=== PATIENT | male | born 1945 | race Caucasian/White ===

== ENCOUNTER 2018-08-09 11:11 | Emergency (ER) | payer MEDICARE ==
[~2018-08-09] VITALS: Ht 160 cm; Wt 70.3 kg
[~2018-08-09 11:11] MED LIST: ADVAIR HFA115 MCG/21 INH; ASPIR 8181 MG PO; ASPIRIN325 PO; DUONEB 2.5-0.5 M3 ML INH; LEVAQUIN 500 M500 M2 PO; LOPRESSOR25 PO; MEDROLDOSEPACK PO; MIRALAX17 GM PO; NAPROSYN500 MG PO; NICOTINE TRANSD21 M1 TRANSDERM; NORCO 5-325 TA1 EACH PO; OXYCODONE HCL 55 MG PO; PREDNISONE 10 M10 MG PO; PROTONIX40 M1 PO; ROBAXIN 750 MG750 M1 PO; ROXICODONE5 MG PO; TOPROL XL25 MG PO; TRAMADOL 50 MG50 MG PO; ZANTAC 150MG T150 MG PO; [UNRECOGNIZED DRUG - REMARK]
[2018-08-09] MEDS ORDERED: TOPROL XL25 MG PO (11:25)
[2018-08-09 11:30] VITALS: BP 135/93
== END 2018-08-09 11:30 | disposition home or self-care (01) ==
LOC: M.ERS 11:11
DX: Z76.0 Encounter for issue of repeat prescription (principal); R03.0 Elevated blood-pressure reading, without diagnosis of hypertension; F17.210 Nicotine dependence, cigarettes, uncomplicated; Z88.5 Allergy status to narcotic agent

== ENCOUNTER 2018-10-24 11:21 | Emergency (ER) | payer MEDICARE ==
[~2018-10-24] VITALS: Ht 160 cm; Wt 68.0 kg
[2018-10-24] MEDS ORDERED: TOPROL XL25 MG PO (11:38)
[2018-10-24 11:45] VITALS: BP 112/66
== END 2018-10-24 11:46 | disposition home or self-care (01) ==
LOC: M.ERS 11:21
DX: I10 Essential (primary) hypertension (principal); Z76.0 Encounter for issue of repeat prescription; F17.210 Nicotine dependence, cigarettes, uncomplicated; Z88.5 Allergy status to narcotic agent

== ENCOUNTER 2019-04-13 09:08 | Inpatient (IN) | payer MEDICARE ==
[~2019-04-13] VITALS: Ht 162.6 cm; Wt 68.0 kg
[2019-04-13 09:13] VITALS: BP 181/100
[2019-04-13] MEDS ORDERED: LISINOPRIL20 MG PO (09:16)
[2019-04-13 09:44] LABS: URINE BLOOD 2+ (Negative); URINE CLARITY CLEAR; URINE COLOR DARK YELLOW; URINE GLUCOSE-RANDOM NEGATIVE (Negative); URINE KETONES TRACE (Negative); URINE LEUKOCYTES-REFLEX NEGATIVE (Negative); URINE NITRITE-REFLEX NEGATIVE (Negative); URINE PROTEIN TRACE (Negative)
[2019-04-13 09:46] LABS: ABSOLUTE BASOPHILS 0.1 thou/uL (0.0-0.2); ABSOLUTE LYMPHOCYTES 1.9 thou/uL (0.8-5.3); ABSOLUTE MONOCYTES 1.8 thou/uL (0.0-1.2); ABSOLUTE NEUTROPHILS 15.9 thou/uL (1.6-8.1); BASOPHILS 0.3 %; EOSINOPHILS 0.1 %; HEMATOCRIT 59.5 % (42.0-52.0); HEMOGLOBIN 20.5 gm/dL (14.0-18.0); LYMPHOCYTES 9.8 %; MCH 32.9 pg (26.0-34.0); MCHC 34.4 g/dL (28.0-37.0); MCV 95.6 fL (80.0-100.0); MONOCYTES 9.2 %; MPV 8.2 fl. (7.2-11.1); NUCLEATED RBCS 0 /100WBC; POLYS 80.6 %; RBC 6.22 mil/uL (4.50-6.00); RDW-CV 15.4 % (10.5-14.5); WBC 19.7 thou/uL (4.0-11.0)
[2019-04-13 09:47] LABS: ICTOTEST (BILI CONFIRMATORY) Positive (Negative); URINE BILIRUBIN 3+ (Negative)
[2019-04-13 09:50] LABS: BACTERIA-REFLEX None Seen /HPF (None Seen); MUCUS None Seen strn/LPF (None Seen); SQUAMOUS NONE SEEN /LPF (0-3); URINE RBC 0-2 Rare /HPF (0-2); URINE WBC-REFLEX None Seen /HPF (0-5)
[2019-04-13 09:51] LABS: CRYSTALS None Seen /LPF (None Seen); HYALINE CASTS 0-3 Few /LPF (None Seen)
[2019-04-13 10:33] LABS: ANISOCYTOSIS 1+; PLATELET ESTIMATE INCREASED
[2019-04-13 10:39] LABS: PLATELET COUNT* 305 thou/uL (150-400)
[2019-04-13 10:56] LABS: ALBUMIN 3.1 g/dL (3.4-5.0); ALKALINE PHOSPHATASE 234 U/L (46-116); BUN 16 mg/dL (7-18); CALCIUM 8.6 mg/dL (8.5-10.1); CO2 23 mmol/L (21-32); CREATININE 1.1 mg/dL (0.6-1.3); GLUCOSE 149 mg/dL (70-99); POTASSIUM 3.4 mmol/L (3.5-5.1); SGOT 187 U/L (15-37); SGPT 280 U/L (30-65); TOTAL BILIRUBIN 9.3 mg/dL (<0.1-1.0); TOTAL PROTEIN 7.1 g/dL (6.4-8.2); TROPONIN-I LEVEL <0.06 ng/mL (<0.06)
[2019-04-13 11:09] LABS: CHLORIDE 103 mmol/L (98-107)
[2019-04-13 11:47] LABS: ANION GAP 15 mmol/L (7-16); SODIUM 141 mmol/L (136-145)
[2019-04-13 12:09] LABS: APTT 29.4 Seconds (25.0-31.3); PROTIME 10.3 Seconds (9.20-11.50)
[2019-04-13 13:02] LABS: LIPASE > 30000 U/L (73-393)
[2019-04-13 17:14] VITALS: BP 171/90
[2019-04-13 17:45] VITALS: BP 160/100
[2019-04-13 19:20] VITALS: BP 158/62
[2019-04-13 22:20] VITALS: BP 137/96
[2019-04-14] VITALS (10 sets, daily range): BP systolic 126–156; BP diastolic 65–102
[2019-04-14 04:20] LABS: HEMATOCRIT 55.4 % (42.0-52.0); MCH 32.5 pg (26.0-34.0); MCHC 33.4 g/dL (28.0-37.0); MCV 97.4 fL (80.0-100.0); MPV 8.1 fl. (7.2-11.1); NUCLEATED RBCS 0 /100WBC; PLATELET COUNT* 256 thou/uL (150-400); RBC 5.69 mil/uL (4.50-6.00); RDW-CV 14.6 % (10.5-14.5); WBC 18.1 thou/uL (4.0-11.0)
[2019-04-14 04:28] LABS: CALCIUM 8.5 mg/dL (8.5-10.1); POTASSIUM 3.6 mmol/L (3.5-5.1); TOTAL BILIRUBIN 4.7 mg/dL (<0.1-1.0)
[2019-04-14 04:29] LABS: HEMOGLOBIN 18.5 gm/dL (14.0-18.0)
[2019-04-14 05:24] LABS: ABSOLUTE LYMPHOCYTES 0.9 thou/uL (0.8-5.3); ABSOLUTE MONOCYTES 1.4 thou/uL (0.0-1.2); ABSOLUTE NEUTROPHILS 15.7 thou/uL (1.6-8.1); ANISOCYTOSIS 1+; PLATELET ESTIMATE ADEQUATE; POIKILOCYTOSIS 1+
--- NOTE | 2019-04-14 13:54 | EKG ---
[place] [address] ELECTROCARDIOGRAM REPORT Name: JUAN GUARDADO JR Room: [address] ADM IN .R.#: [id number] Admission: 04/13/19 Attend Phys: Nirmal Wilson MD Discharge: Date of : 43 Report #: [id number] THIS REPORT FOR: //name// [facility] ED Test Date: 2019-04-13 Test Time: 09:28:32 Pat Name: JUAN GUARDADO Department: Room: [facility] Gender: M Director Of Investigations: : 1945 Requested By: Fabio Orellana Order Number: [id number] MD: Lamont Case Measurements Intervals [place] Rate: 104 P: 79 IA: 164 QRS: -18 QRSD: 86 T: 61 QT: 343 QTc: 452 Interpretive Statements Sinus tachycardia Borderline left axis deviation Low voltage, extremity leads Consider anterior infarct Compared to ECG 09/27/2015 10:47:42 Low QRS voltage now present Myocardial infarct finding now present Sinus rate has increased ST (T wave) deviation no longer present Electronically Signed On 04-14-2019 13:53:53 CDT by Lamont Case [email or web address] <ELECTRONICALLY SIGNED> By: Lamont Case MD, FAC 04/14/19 1353 0928 0928 Lamont Case MD, FAC /EPI
[2019-04-15] VITALS: BP 106/66
[2019-04-15 04:00] VITALS: BP 117/50
[2019-04-15 04:11] LABS: ABSOLUTE EOSINOPHILS 0.1 thou/uL (0.0-0.7); ABSOLUTE LYMPHOCYTES 1.5 thou/uL (0.8-5.3); ABSOLUTE MONOCYTES 1.4 thou/uL (0.0-1.2); ABSOLUTE NEUTROPHILS 14.4 thou/uL (1.6-8.1); BASOPHILS 0.2 %; EOSINOPHILS 0.5 %; HEMATOCRIT 45.9 % (42.0-52.0); LYMPHOCYTES 8.5 %; MCH 32.5 pg (26.0-34.0); MCV 98.3 fL (80.0-100.0); MONOCYTES 7.9 %; NUCLEATED RBCS 0 /100WBC; PLATELET COUNT* 189 thou/uL (150-400); POLYS 82.9 %; RBC 4.67 mil/uL (4.50-6.00); RDW-CV 14.8 % (10.5-14.5); WBC 17.3 thou/uL (4.0-11.0)
[2019-04-15 04:14] LABS: HEMOGLOBIN 15.2 gm/dL (14.0-18.0)
[2019-04-15 04:25] LABS: ALBUMIN 2.2 g/dL (3.4-5.0); CALCIUM 7.5 mg/dL (8.5-10.1); POTASSIUM 3.5 mmol/L (3.5-5.1); TOTAL BILIRUBIN 2.7 mg/dL (<0.1-1.0); TOTAL PROTEIN 5.4 g/dL (6.4-8.2)
[2019-04-15 09:54] VITALS: BP 138/59
[2019-04-15 16:30] VITALS: BP 135/63
[2019-04-15 20:00] VITALS: BP 133/67
[2019-04-16 02:05] LABS: HEPATITIS B SURFACE AG Negative (Negative)
[2019-04-16 04:11] LABS: HEMATOCRIT 43.9 % (42.0-52.0); HEMOGLOBIN 14.5 gm/dL (14.0-18.0); MCH 32.3 pg (26.0-34.0); MPV 8.5 fl. (7.2-11.1); RBC 4.48 mil/uL (4.50-6.00); RDW-CV 14.6 % (10.5-14.5); WBC 14.5 thou/uL (4.0-11.0)
[2019-04-16 04:31] LABS: ALBUMIN 2.2 g/dL (3.4-5.0); CALCIUM 7.9 mg/dL (8.5-10.1); CREATININE 0.9 mg/dL (0.6-1.3); POTASSIUM 3.3 mmol/L (3.5-5.1); TOTAL BILIRUBIN 2.1 mg/dL (<0.1-1.0); TOTAL PROTEIN 5.5 g/dL (6.4-8.2)
[2019-04-16 10:00] VITALS: BP 131/79
[2019-04-16 16:30] VITALS: BP 146/71
[2019-04-16 21:30] VITALS: BP 118/65
[2019-04-17 09:00] VITALS: BP 134/74
[2019-04-17 16:30] VITALS: BP 115/59
[2019-04-17 20:15] VITALS: BP 134/71
[2019-04-18 04:00] VITALS: BP 141/74
[2019-04-18 04:22] LABS: HEMATOCRIT 42.5 % (42.0-52.0); HEMOGLOBIN 13.9 gm/dL (14.0-18.0); MCH 32.3 pg (26.0-34.0); MCHC 32.8 g/dL (28.0-37.0); MCV 98.3 fL (80.0-100.0); MPV 7.9 fl. (7.2-11.1); RBC 4.32 mil/uL (4.50-6.00); RDW-CV 14.3 % (10.5-14.5); WBC 12.4 thou/uL (4.0-11.0)
[2019-04-18 04:47] LABS: ALBUMIN 2.1 g/dL (3.4-5.0); CALCIUM 7.9 mg/dL (8.5-10.1); CREATININE 0.9 mg/dL (0.6-1.3); MAGNESIUM 1.9 mg/dL (1.8-2.4); POTASSIUM 3.4 mmol/L (3.5-5.1); TOTAL BILIRUBIN 1.3 mg/dL (<0.1-1.0); TOTAL PROTEIN 5.5 g/dL (6.4-8.2)
[2019-04-18 16:00] VITALS: BP 120/58
--- NOTE | 2019-04-18 18:05 | PATH ---
[address] [address] PATHOLOGY RPT PROCEDURE Name: JUAN LITTLE JR Room: [address] IN ..#: [id number] Admission: 04/13/19 Date of : 43 Discharge: Report #: [id number] Path Case #: [id number] [facility] Accession Number: [id number] . 01 Material submitted: . 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 01 Clinical history: . A. Biopsy for H. pylori, duodenitis B. Biopsy for Moore's esophagitis . 02 Diagnosis: A. Antral biopsy: - Mild nonspecific chronic antral gastritis, negative for Helicobacter pylori organisms and dysplasia. . B. Esophageal biopsy at 35 cm: - Benign esophageal and Moore's types mucosa with moderate chronic and active inflammation, typical of reflux, negative for granulomas and dysplasia. . (DERRELL:mml; 04/18/2019) QLM/04/18/2019 . 02 Comment: Special stain (A): H. pylori immuno. . (DERRELL:mml; 04/18/2019) . 02 Electronically signed: . Rodrick Obregon MD, Pathologist NPI- [id number] . 01 Gross description: . A. Received in formalin labeled "Juan Little Jr, antral biopsy for H. pylori for duodenitis," is a segment of altman-brown soft tissue measuring 0.4 x 0.4 x 0.3 cm in greatest dimensions. The specimen is submitted entirely in cassette A1. . B. Received in formalin labeled "Juan Little Jr, esophageal biopsy at 35 cm, for Barretts esophagitis," is a segment of altman-brown soft tissue measuring 0.5 x 0.2 x 0.2 cm in greatest dimensions. The specimen is submitted entirely in cassette B1. ([facility]; 04/15/2019) XDC/XDC . 02 Pathologist provided ICD-10: [place] [address] PATHOLOGY RPT PROCEDURE Name: JUAN LITTLE JR Room: [address] IN ..#: [id number] Admission: 04/13/19 Date of : 43 Discharge: Report #: [id number] Path Case #: [id number] K29.50, K20.9 . 02 CPT . 898740, [id number], [id number] Specimen Comment: A courtesy copy of this report has been sent to Specimen Comment: [phone], , . Specimen Comment: Report sent to ,DR WASHINGTON / DR CARRILLO Performed at: [address], [place], [place] [id number] MD Tor Hyatt MD Phone: [phone] Performed at: 02 [facility] [address], [place], [place] [id number] MD Rodrick Obregon MD Phone: [phone]
[2019-04-18 20:30] VITALS: BP 124/65
[2019-04-19 03:53] LABS: ABSOLUTE BASOPHILS 0.1 thou/uL (0.0-0.2); ABSOLUTE EOSINOPHILS 0.3 thou/uL (0.0-0.7); ABSOLUTE LYMPHOCYTES 2.4 thou/uL (0.8-5.3); ABSOLUTE MONOCYTES 1.3 thou/uL (0.0-1.2); ABSOLUTE NEUTROPHILS 8.8 thou/uL (1.6-8.1); BASOPHILS 0.5 %; CALCIUM 7.9 mg/dL (8.5-10.1); CREATININE 0.9 mg/dL (0.6-1.3); EOSINOPHILS 2.1 %; HEMATOCRIT 42.3 % (42.0-52.0); HEMOGLOBIN 14.1 gm/dL (14.0-18.0); LYMPHOCYTES 18.4 %; MCH 32.6 pg (26.0-34.0); MCHC 33.2 g/dL (28.0-37.0); MCV 98.1 fL (80.0-100.0); MONOCYTES 9.8 %; MPV 7.7 fl. (7.2-11.1); NUCLEATED RBCS 0 /100WBC; PLATELET COUNT* 319 thou/uL (150-400); POLYS 69.2 %; POTASSIUM 3.5 mmol/L (3.5-5.1); RBC 4.31 mil/uL (4.50-6.00); RDW-CV 14.4 % (10.5-14.5); WBC 12.8 thou/uL (4.0-11.0)
[2019-04-19 07:40] VITALS: BP 132/84
[2019-04-19 19:45] VITALS: BP 148/63
[2019-04-20 03:57] LABS: HEMATOCRIT 45.3 % (42.0-52.0); HEMOGLOBIN 15.3 gm/dL (14.0-18.0); MCH 33.2 pg (26.0-34.0); MCHC 33.8 g/dL (28.0-37.0); MCV 98.2 fL (80.0-100.0); MPV 7.6 fl. (7.2-11.1); NUCLEATED RBCS 0 /100WBC; PLATELET COUNT* 379 thou/uL (150-400); RBC 4.61 mil/uL (4.50-6.00); RDW-CV 14.3 % (10.5-14.5); WBC 13.4 thou/uL (4.0-11.0)
[2019-04-20 04:31] LABS: ALBUMIN 2.3 g/dL (3.4-5.0); CALCIUM 7.9 mg/dL (8.5-10.1); CREATININE 0.9 mg/dL (0.6-1.3); MAGNESIUM 1.9 mg/dL (1.8-2.4); POTASSIUM 4.3 mmol/L (3.5-5.1); TOTAL BILIRUBIN 0.9 mg/dL (<0.1-1.0); TOTAL PROTEIN 5.6 g/dL (6.4-8.2)
[2019-04-20 05:46] LABS: ABSOLUTE LYMPHOCYTES 1.6 thou/uL (0.8-5.3); ABSOLUTE MONOCYTES 0.7 thou/uL (0.0-1.2); ABSOLUTE NEUTROPHILS 11.1 thou/uL (1.6-8.1); ANISOCYTOSIS 1+; PLATELET ESTIMATE ADEQUATE; POIKILOCYTOSIS 1+
[2019-04-20 07:40] VITALS: BP 145/79
[2019-04-20 16:03] VITALS: BP 129/69
[2019-04-20 20:00] VITALS: BP 171/91
[2019-04-21] VITALS: BP 152/95
[2019-04-21 04:01] LABS: ABSOLUTE EOSINOPHILS 0.1 thou/uL (0.0-0.7); ABSOLUTE LYMPHOCYTES 1.1 thou/uL (0.8-5.3); ABSOLUTE MONOCYTES 1.5 thou/uL (0.0-1.2); ABSOLUTE NEUTROPHILS 15.3 thou/uL (1.6-8.1); BASOPHILS 0.3 %; EOSINOPHILS 0.4 %; HEMATOCRIT 49.4 % (42.0-52.0); LYMPHOCYTES 6.4 %; MCH 31.9 pg (26.0-34.0); MCHC 32.4 g/dL (28.0-37.0); MCV 98.3 fL (80.0-100.0); MONOCYTES 8.2 %; MPV 7.5 fl. (7.2-11.1); NUCLEATED RBCS 0 /100WBC; POLYS 84.7 %; RBC 5.02 mil/uL (4.50-6.00); RDW-CV 14.8 % (10.5-14.5)
[2019-04-21 04:11] LABS: PLATELET COUNT* 464 thou/uL (150-400)
[2019-04-21 04:22] LABS: ALBUMIN 2.3 g/dL (3.4-5.0); CALCIUM 8.4 mg/dL (8.5-10.1); MAGNESIUM 1.9 mg/dL (1.8-2.4); POTASSIUM 3.3 mmol/L (3.5-5.1); TOTAL PROTEIN 6.5 g/dL (6.4-8.2)
[2019-04-21 07:40] VITALS: BP 137/95
[2019-04-21] MEDS ORDERED: HYDROCODON-ACE1 EAC7 PO (11:38)
[2019-04-21 12:43] VITALS: BP 137/95
--- NOTE | 2019-04-22 17:02 | OP ---
[address] [address] OPERATIVE REPORT Name: JUAN GUARDADO JR Room: [address] IN .R.#: [id number] Admission: 04/13/19 Attend Phys: Nirmal Wilson MD Discharge: 04/21/19 Date of : 43 Report #: [id number] THIS REPORT FOR: //name// CC: Hudson Wilson DATE OF SERVICE: 04/19/2019 PREOPERATIVE DIAGNOSES: Gallstone pancreatitis with acute cholecystitis. POSTOPERATIVE DIAGNOSES: Gallstone pancreatitis with acute cholecystitis. SURGEON: Mary Bond DO PROCEDURE: Laparoscopic cholecystectomy. ANESTHESIA: General endotracheal. SPECIMENS: Gallbladder and contents. ESTIMATED BLOOD LOSS: 75 mL. COMPLICATIONS: None. INDICATIONS FOR PROCEDURE: The patient is a 73-year-old gentleman who presented to the Emergency Department with acute gallstone pancreatitis with acute cholecystitis and elevated bilirubin. The patient underwent an ERCP, which demonstrated no evidence of choledocholithiasis; however, the common bile duct was noted to be sluggish, suggestive of likely recently passed stone. Once the patient's pancreatitis and abdominal pain resolved, the patient was discussed laparoscopic cholecystectomy to prevent further recurrences. The patient was explained the procedure including risks, benefits and alternatives. All questions were answered to patient's satisfaction and informed consent was obtained. DESCRIPTION OF PROCEDURE: After the patient was brought back to the operating room and placed in supine position, general anesthesia was induced. SCDs were placed on bilateral lower extremities and prophylactic antibiotics were administered. Next, after a timeout was performed. The abdomen was accessed via a supraumbilical Mayelin trocar. The abdomen was insufflated to 50 mm of CO2. Next, under direct visualization, three 5 mm trocars were placed in the subxiphoid and right subcostal margin. The gallbladder was then grasped and retracted over the dome of the liver. There were noted to be dense adhesions of omentum to the gallbladder body as well as to the undersurface of the liver bed. These were taken down sharply with hook Bovie cautery. Next, the gallbladder infundibulum was then grasped and retracted [place] [address] OPERATIVE REPORT Name: JUAN GUARDADO JR Room: [address] IN [facility].#: [id number] Admission: 04/13/19 Attend Phys: Nirmal Wilson MD Discharge: 04/21/19 Date of : 43 Report #: [id number] cystic duct was circumferentially dissected free as well as the cystic artery. The cystic artery was doubly clipped proximally and singly clipped distally and transected. At this time, a hole did develop at the infundibulum with spillage of bile and many small gallstones. The cystic duct was circumferentially dissected, was doubly clipped distally and was transected. An Endoloop was then placed. Next, the gallbladder was then freed from the cystic plate using hook Bovie cautery. There was a posterior cystic artery, which was noted to be bleeding, which was clipped as well and hemostasis was noted to be excellent. The gallbladder was then placed within an Endopouch bag and brought out through the umbilical trocar site. Next, the right upper quadrant was then suctioned and irrigated using a 10 mm suction cylinder grinder. The majority of the gallstones were removed from the right upper quadrant. The liver bed was again inspected and was noted to be hemostatic. Nik and Surgicel were placed within the right upper quadrant and omentum was packed into the gallbladder fossa. The patient tolerated the procedure well. The 5 mm trocars were removed under direct visualization and excellent hemostasis at the anterior abdominal wall. Local anesthetic was infiltrated in all surgical sites and the umbilical fascia was then closed with a [id number] 0 Vicryl stitch. The skin was then closed with 4-0 Monocryl in a subcuticular manner and Dermabond was applied for sterile dressing. All sponge, and instrument count was reported as correct at the end of the case. The patient tolerated the procedure well without any complications. He was awakened from anesthesia in the operating room and taken to the PACU in stable condition for further recovery. <ELECTRONICALLY SIGNED> By: Mary Bond DO 04/22/19 1702 1610 1725Cnayeli Bond DO /nt
--- NOTE | 2019-04-24 13:56 | H ---
[address] [address] HISTORY AND PHYSICAL Name: JUAN GUARDADO JR Room: [address] IN M.R.#: [id number] Admission: 04/13/19 Attend Phys: Nirmal Wilson MD Discharge: 04/21/19 Date of : 43 Report #: [id number] THIS REPORT FOR: //name// CC: Hudson Oneil ADDENDUM <ELECTRONICALLY SIGNED> By: Juarez Reyes DO 04/24/19 1356 1256 1308Juarez Reyes DO /nt
--- NOTE | 2019-04-25 09:08 | PATH ---
[address] [address] PATHOLOGY RPT PROCEDURE Name: JUAN LITTLE JR Room: [address] IN ..#: [id number] Admission: 04/13/19 Date of : 43 Discharge: 04/21/19 Report #: [id number] Path Case #: [id number] [facility] Accession Number: [id number] . 01 Material submitted: . gallbladder - GALLBLADDER WITH GALLSTONES . 01 Clinical history: . Gallstones pancreatitis and acute cholecystitis . 02 Diagnosis: Gallbladder with gallstones: - Chronic cholecystitis and cholelithiasis. (DERRELL:jd; 04/22/2019) MBR/04/22/2019 . 02 Electronically signed: . Rodrick Obregon MD, Pathologist NPI- [id number] . 01 Gross description: . Received in formalin labeled "Juan Little Jr, gallbladder w/ gallstones," is a gallbladder measuring 9.3 x 2.7 x 1.9 cm in greatest dimensions. The serosal surface is wrinkled to shaggy, pink-zhao and partially adipose-covered in appearance. The infundibulum is replaced by a ragged hole measuring 1.2 x 0.8 cm. Opening the specimen reveals a granular, green-brown mucosa measuring 0.1 cm in thickness, with a gallbladder wall thickness of up to 0.3 cm. No polyps or nodules are noted grossly. Calculi are present within the specimen that are multifaceted and dark brown in appearance, ranging from 0.3 to 1.1 cm in maximum dimension. Two defects are noted in the mucosal surface, measuring 0.2 cm each in maximum dimension and extending to within 5.2 cm of the ragged infundibulum. Press Machine Operator sections of the ragged infundibulum, body and fundus are submitted in cassette A1, to include the most proximal mucosal surface disruption. (DAC; 04/20/2019) XDC/XDC . 02 Pathologist provided ICD-10: K80.10 . 02 CPT . 268207 Specimen Comment: A courtesy copy of this report has been sent to Specimen Comment: [phone], , . Specimen Comment: Report sent to ,DR WASHINGTON / DR CARRILLO Performed at: 01 [place] [address] PATHOLOGY RPT PROCEDURE Name: JUAN LITTLE JR Room: [address] IN .R.#: [id number] Admission: 04/13/19 Date of : 43 Discharge: 04/21/19 Report #: [id number] Path Case #: [id number] [address] [facility] [address], [place], [place] [id number] MD Tor Hyatt MD Phone: [phone] Performed at: 02 [facility] [address], [place], [place] [id number] MD Rodrick Obregon MD Phone: [phone]
--- NOTE | 2019-04-25 19:01 | CON ---
[address] [address] CONSULTATION Name: JUAN GUARDADO JR Room: [address] IN M.R.#: [id number] Admission: 04/13/19 Attend Phys: Ananth Wilson MD Discharge: 04/21/19 Date of : 43 Report #: [id number] THIS REPORT FOR: //name// CC: ANANTH Wilson DATE OF SERVICE: 04/13/2019 REFERRING PHYSICIAN: Dr. Ananth Wilson. REASON FOR CONSULTATION: Severe abdominal pain with jaundice. IMPRESSION: 1. Right upper quadrant pain, most likely related to gallstone pancreatitis, plus or minus acute cholecystitis. 2. Obstructive jaundice, likely related to common bile duct stones. 3. Polycythemia of uncertain significance. 4. Chronic tobaccoism. RECOMMENDATIONS: 1. Agree with IV antibiotics, IV fluids, pain control. 2. We will proceed with EGD and ERCP tomorrow morning. I have discussed the nature, risks, benefits and alternatives of the procedure with the patient as well and he is agreeable to the same. 3. We will consult Surgery to evaluate the patient for eventual laparoscopic cholecystectomy. 4. If hemoglobin does drop, would consider Hematology consult to ensure he does not have polycythemia vera or some type of myeloproliferative disorder. I discussed these impressions and plans with the patient as well and he is agreeable to the same. HISTORY OF PRESENT ILLNESS: The patient is a very pleasant 73-year-old white male who was admitted to hospital with rather severe abdominal pain, which began just a couple of days ago. He states most of the pain is in the epigastric area without nausea. He had been eating some popcorn and started having issues related to same. He denies having complaints of any dysphagia, odynophagia, chronic reflux or postprandial pain. He has never had this pain before. He was seen through the Emergency Room by Dr. Orellana and found to have obstructive jaundice. ALLERGIES: CODEINE. MEDICATIONS: Lisinopril. PAST MEDICAL HISTORY: Significant for hypertension. [place] [address] CONSULTATION Name: JUAN GUARDADO JR Room: [address] IN [facility]#: [id number] Admission: 04/13/19 Attend Phys: Ananth Wilson MD Discharge: 04/21/19 Date of : 43 Report #: [id number] surgery. He has had pins placed in his finger in the past. SOCIAL HISTORY: The patient does smoke on a regular basis. Drinks no alcohol. FAMILY HISTORY: Negative. PHYSICAL EXAMINATION: GENERAL: Revealed pleasant 73-year-old gentleman who is afebrile. He does not appear to be acutely ill. CARDIOPULMONARY: Revealed a regular rate and rhythm. LUNGS: Clear. ABDOMEN: Soft. There is tender epigastric and right upper quadrant. No rebound or guarding noted. LABORATORY DATA: Revealed a white count of 19.7, hemoglobin 20.5, platelet count 305,000, MCV is 95.6 and RDW is 15.4. Differential is normal. His sodium 141, potassium 3.4, chloride 103, bicarbonate is 23, BUN 16, creatinine 1.1. Total bilirubin 9.3, alkaline phosphatase is 234, AST 187, ALT 280. His albumin is 3.1. Lipase is greater than 30,000. His INR is 10.3. His protime is 10.3 with an INR of 1.0. CT scan of abdomen and pelvis with contrast revealed gallstones with gallbladder wall thickening and pericholecystic fluid. There is also peripancreatic stranding and inflammation around the body and tail of the pancreas. His common duct is dilated to 8 mm. 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 DISCUSSION: At the present time, the patient has symptomatic gallstone pancreatitis. We will proceed with EGD, ERCP tomorrow and make further recommendations thereafter. I have discussed the plans with the patient as well and he is agreeable to the same. <ELECTRONICALLY SIGNED> By: Juarez Reyes DO 04/25/19 1901 1254 [id number] Reyes DO /nt
== END 2019-04-21 13:25 | disposition home or self-care (01) | DRG 853 ==
LOC: M.ERS 09:08 → M.TBA-ER 12:32 → M.ORTHSURG 12:32
PROVIDERS: Family Medicine; Internal Medicine; Internal Medicine Gastroenterology; Nurse Practitioner Adult Health; ADMIT Internal Medicine
PROC: 0F798ZZ Dilation of Common Bile Duct, Via Natural or Artificial Opening Endoscopic (ICD-10-PCS; principal; 2019-04-14)
PROC: 0FC98ZZ Extirpation of Matter from Common Bile Duct, Via Natural or Artificial Opening Endoscopic (ICD-10-PCS; principal; 2019-04-14)
PROC: 0DB58ZX Excision of Esophagus, Via Natural or Artificial Opening Endoscopic, Diagnostic (ICD-10-PCS; principal; 2019-04-14)
PROC: 0DB68ZX Excision of Stomach, Via Natural or Artificial Opening Endoscopic, Diagnostic (ICD-10-PCS; principal; 2019-04-14)
PROC: BF121ZZ Fluoroscopy of Gallbladder using Low Osmolar Contrast (ICD-10-PCS; principal; 2019-04-14)
PROC: 0FT44ZZ Resection of Gallbladder, Percutaneous Endoscopic Approach (ICD-10-PCS; 2019-04-19)
DX: A41.9 Sepsis, unspecified organism (principal); K85.10 Biliary acute pancreatitis without necrosis or infection; K80.01 Calculus of gallbladder with acute cholecystitis with obstruction; I10 Essential (primary) hypertension; F17.210 Nicotine dependence, cigarettes, uncomplicated; E86.0 Dehydration; K44.9 Diaphragmatic hernia without obstruction or gangrene; K22.70 Barrett's esophagus without dysplasia; K29.80 Duodenitis without bleeding; D75.1 Secondary polycythemia; E87.6 Hypokalemia; Z88.6 Allergy status to analgesic agent; Z82.49 Family history of ischemic heart disease and other diseases of the circulatory system; Z79.899 Other long term (current) drug therapy

== ENCOUNTER 2019-04-28 14:07 | Inpatient (IN) | payer MEDICARE ==
[~2019-04-28] VITALS: Ht 162.6 cm; Wt 65.8 kg
[~2019-04-28 14:07] MED LIST changes: +HYDROCODON-ACE1 EAC7 PO; +LISINOPRIL20 MG PO
[2019-04-28 14:12] VITALS: BP 139/76
[2019-04-28 14:23] LABS: URINE BILIRUBIN NEGATIVE (Negative); URINE BLOOD 2+ (Negative); URINE CLARITY CLEAR; URINE COLOR YELLOW; URINE GLUCOSE-RANDOM NEGATIVE (Negative); URINE KETONES 1+ (Negative); URINE LEUKOCYTES-REFLEX TRACE (Negative); URINE NITRITE-REFLEX NEGATIVE (Negative); URINE PROTEIN NEGATIVE (Negative); URINE SPECIFIC GRAVITY <= 1.005 (1.005-1.030); URINE UROBILINOGEN 0.2 E.U./dl (0.2-1.0)
[2019-04-28 14:34] LABS: ABSOLUTE BASOPHILS 0.1 thou/uL (0.0-0.2); ABSOLUTE EOSINOPHILS 0.1 thou/uL (0.0-0.7); ABSOLUTE LYMPHOCYTES 1.2 thou/uL (0.8-5.3); ABSOLUTE MONOCYTES 1.3 thou/uL (0.0-1.2); ABSOLUTE NEUTROPHILS 15.3 thou/uL (1.6-8.1); BASOPHILS 0.7 %; EOSINOPHILS 0.4 %; HEMATOCRIT 42.3 % (42.0-52.0); HEMOGLOBIN 14.4 gm/dL (14.0-18.0); LYMPHOCYTES 6.8 %; MCH 32.4 pg (26.0-34.0); MCV 95.4 fL (80.0-100.0); MONOCYTES 7.2 %; NUCLEATED RBCS 0 /100WBC; PLATELET COUNT* 667 thou/uL (150-400); POLYS 84.9 %; RBC 4.43 mil/uL (4.50-6.00); RDW-CV 14.2 % (10.5-14.5); WBC 18.1 thou/uL (4.0-11.0)
[2019-04-28 14:36] LABS: BACTERIA-REFLEX None Seen /HPF (None Seen); CASTS None Seen /LPF (None Seen); CRYSTALS None Seen /LPF (None Seen); SQUAMOUS 0-3 Few /LPF (0-3); URINE RBC 0-2 Rare /HPF (0-2); URINE WBC-REFLEX 6-15 Few /HPF (0-5)
[2019-04-28 14:42] LABS: ANION GAP 14 mmol/L (7-16); BUN 19 mg/dL (7-18); CALCIUM 8.1 mg/dL (8.5-10.1); CHLORIDE 108 mmol/L (98-107); CO2 27 mmol/L (21-32); CREATININE 1.8 mg/dL (0.6-1.3); GLUCOSE 114 mg/dL (70-99); SODIUM 149 mmol/L (136-145)
[2019-04-28 14:45] LABS: POTASSIUM 2.7 mmol/L (3.5-5.1)
[2019-04-28 14:51] LABS: ALBUMIN 2.3 g/dL (3.4-5.0); ALKALINE PHOSPHATASE 94 U/L (46-116); LIPASE 198 U/L (73-393); SGOT 25 U/L (15-37); SGPT 25 U/L (30-65); TOTAL BILIRUBIN 1.1 mg/dL (<0.1-1.0); TOTAL PROTEIN 6.8 g/dL (6.4-8.2); TROPONIN-I LEVEL <0.06 ng/mL (<0.06)
--- NOTE | 2019-04-28 15:35 | NUR ---
PT IV UNRAVELED AND LEAKED DURING INJECTION, CATHETER COMING OUT AND HUB ALL THE WAY LOOSE) (ALREADY DROPPED INJECTION RATE TO 2.0 INSTEAD OF 2.5) UNTAPED, RETIGHTENED, RE THREADED, CLEANED UP, TESTED, AND RE-TAPED. WORKS FINE. -JW
[2019-04-28 16:15] LABS: AMP/METHAMP Negative (Negative); BARBITURATES Negative (Negative); BENZODIAZEPINES Negative (Negative); COCAINE Negative (Negative); METHADONE Negative (Negative); OPIATES Negative (Negative); PCP Negative (Negative); THC POSITIVE (Negative)
[2019-04-28 18:44] VITALS: BP 165/85
[2019-04-28 18:45] VITALS: BP 153/71
--- NOTE | 2019-04-28 18:57 | NUR ---
PT ADMITTED ON TELE FLOOR AT 1830. PT HAD AN EPISODE OF DIARRHEA ON ER BED. PT WAS CLEANED. THAN TRANSFERRED ON TELE BED. PT HAD A WILLETT CATHETER IN. ACCORDING TO ER NURSE PT HAD URINATED 2700 CC OF URINE. URINE COLOR IS LIGHT YELLOW. CDIFF REESULT PENDING. SOW FARM TECHNICIAN NOTIFIED ABOUT ISOLATION CART. NS STARTED WIDE OPEN ORDERED. PO POTASSIUM GIVEN TO PT. VS TAKEN. SR ON TITLE ATTORNEY. WILL GIVE REPORT TO NIGHT NURSE
[2019-04-28 20:20] VITALS: BP 133/69
[2019-04-29] VITALS: BP 127/67
[2019-04-29 04:33] VITALS: BP 122/68
[2019-04-29 04:33] LABS: ABSOLUTE BASOPHILS 0.1 thou/uL (0.0-0.2); ABSOLUTE EOSINOPHILS 0.2 thou/uL (0.0-0.7); ABSOLUTE LYMPHOCYTES 1.4 thou/uL (0.8-5.3); ABSOLUTE MONOCYTES 1.2 thou/uL (0.0-1.2); ABSOLUTE NEUTROPHILS 9.3 thou/uL (1.6-8.1); BASOPHILS 0.8 %; EOSINOPHILS 1.5 %; HEMATOCRIT 42.1 % (42.0-52.0); HEMOGLOBIN 13.6 gm/dL (14.0-18.0); LYMPHOCYTES 11.8 %; MCH 31.8 pg (26.0-34.0); MCHC 32.2 g/dL (28.0-37.0); MCV 98.6 fL (80.0-100.0); MPV 7.6 fl. (7.2-11.1); NUCLEATED RBCS 0 /100WBC; POLYS 75.9 %; RBC 4.27 mil/uL (4.50-6.00); RDW-CV 14.5 % (10.5-14.5); WBC 12.2 thou/uL (4.0-11.0)
[2019-04-29 04:54] LABS: ANION GAP 10 mmol/L (7-16); BUN 12 mg/dL (7-18); CALCIUM 7.7 mg/dL (8.5-10.1); CHLORIDE 116 mmol/L (98-107); CHOLESTEROL 92 mg/dL (<200); CO2 25 mmol/L (21-32); CREATININE 1.3 mg/dL (0.6-1.3); GLUCOSE 86 mg/dL (70-99); HDL CHOLESTEROL 20 mg/dL (>40); LDL CHOLESTEROL 46 mg/dL (<100); PHOSPHORUS* 3.2 mg/dL (2.5-4.9); POTASSIUM 3.7 mmol/L (3.5-5.1); SODIUM 151 mmol/L (136-145); TC:HDL 4.6 Ratio (Not establshd); TRIGLYCERIDE 132 mg/dL (<150); VLDL 26 mg/dL (<40)
[2019-04-29 04:56] LABS: SERUM ASSESSMENT CLEAR
[2019-04-29 05:28] LABS: PLATELET COUNT* 569 thou/uL (150-400)
--- NOTE | 2019-04-29 07:46 | NUR ---
PT CARE ASSUMED AT 1930. SAT MAINTAINED IN O2. DENIES PAIN AND SOB. CALL LIGHT WITHIN REACH AND BED IN LOW POSITION. HOURLY ROUNDING DONE FOR PT SAFETY. PT HAD A RUN OF VTACH, PT ASYMPTOMATIC, SOUND ASLEEP. VSS AND CHARTED. ISOLATION MAINTAINED FOR C.DIFF.
[2019-04-29 08:00] VITALS: BP 106/57
--- NOTE | 2019-04-29 09:14 | EKG ---
[place] [address] ELECTROCARDIOGRAM REPORT Name: JUAN GUARDADO JR Room: [address] ADM IN .R.#: [id number] Admission: 04/28/19 Attend Phys: Errol Guy MD Discharge: Date of : 43 Report #: [id number] THIS REPORT FOR: //name// [facility] ED Test Date: 2019-04-28 Test Time: 14:56:13 Pat Name: JUAN GUARDADO Department: Room: [facility] Gender: M Horse Doctor: LION : 1945 Requested By: Tra Hogan Order Number: [id number] MD: Davis Villegas Measurements Intervals [place]ter Rate: 76 P: 0 TX: 80 QRS: -16 QRSD: 90 T: -17 QT: 434 QTc: 489 Interpretive Statements Sinus rhythm artifact noted Ventricular premature complex Short TX interval Consider right atrial enlargement Borderline left axis deviation Borderline repolarization abnormality Borderline prolonged QT interval Baseline wander in lead(s) V5 Compared to ECG 04/13/2019 09:28:32 Ventricular premature complex(es) now present Short TX interval now present Sinus tachycardia no longer present Electronically Signed On 04-29-2019 9:14:09 CDT by Davis Villegas [email or web address] <ELECTRONICALLY SIGNED> By: Davis Villegas MD, [facility] 04/29/19 0914 1456 1456 Davis Villegas MD, [facility] /EPI
--- NOTE | 2019-04-29 11:33 | NUR ---
MET WITH PT TO DISCUSS HOME SITUATION/DC PLANNING. PT LIVES ALONE, HAD RECENT SURGERY LAST MONTH AND READMITTED WITH ARF. PT REPORTS HE'S BEEN DOING 'OK', VOICED CONCERNED ABOUT BEING ABLE TO CARE FOR HIMSELF. DENIES HAVING A PCP, BUT HAS BEEN TO OFFICE IN [place] AND SEEN 'NURSES, NOT DR.' PT HAS BEEN TO [place] FOR SNF IN PAST AND WILL CONSIDER IT AGAIN 'IF NEEDED.' AWAIT THERAPY EVALS AND WILL FOLLOW
[2019-04-29 12:05] VITALS: BP 118/62
--- NOTE | 2019-04-29 13:54 | NUR ---
assumed pt care report received from nurse pt is aox3 forgetful. on 2 l nc. o2 saturation is 95%. pt had diarrhea this am. stool smaple sent to lab for cdiff lab. awaiting result, isolation maintainted. pt went down for a pipida scan. pt restarted on clear liquid diet, tolorating well. pt/ot ordered. iv 0.45% ns started. nicotine patch palced on right upper arm. pt has a red bottom. barrier cream applied. wound care consulted. case management also consulted since pt lives alone and no familty involved. will continue to monitor
--- NOTE | 2019-04-29 14:58 | NUR ---
WOUND NURSE: RECEIVED A WOUND CONSULT ON THIS PATIENT PERTAINING TO RED MACULAR RASH IN PERINEAL AREA AND INCLUDING SCROTAL AND GLUTEAL AREAS. PATIENT IS INCONTINENT OF DIARRHEA STOOLS. CLEANSED WITH DIAPER WIPES, THEN APPLIED PHYTOPLEX AF MOISTURE BARRIER TO CONTROL YEAST AND PREVENT IRRITATION FROM FECES.
[2019-04-29 16:57] VITALS: BP 100/61
[2019-04-29 20:01] VITALS: BP 129/68
[2019-04-30] VITALS: BP 105/50
[2019-04-30 04:00] VITALS: BP 103/66
[2019-04-30 04:52] LABS: ABSOLUTE EOSINOPHILS 0.4 thou/uL (0.0-0.7); ABSOLUTE LYMPHOCYTES 1.5 thou/uL (0.8-5.3); ABSOLUTE MONOCYTES 1.1 thou/uL (0.0-1.2); ABSOLUTE NEUTROPHILS 11.7 thou/uL (1.6-8.1); BASOPHILS 0.3 %; EOSINOPHILS 2.4 %; HEMATOCRIT 40.1 % (42.0-52.0); HEMOGLOBIN 13.1 gm/dL (14.0-18.0); LYMPHOCYTES 10.2 %; MCH 31.7 pg (26.0-34.0); MCHC 32.7 g/dL (28.0-37.0); MCV 96.8 fL (80.0-100.0); MONOCYTES 7.6 %; MPV 7.5 fl. (7.2-11.1); NUCLEATED RBCS 0 /100WBC; PLATELET COUNT* 542 thou/uL (150-400); POLYS 79.5 %; RBC 4.14 mil/uL (4.50-6.00); RDW-CV 14.1 % (10.5-14.5); WBC 14.8 thou/uL (4.0-11.0)
[2019-04-30 04:55] LABS: CALCIUM 7.7 mg/dL (8.5-10.1); CREATININE 1.2 mg/dL (0.6-1.3)
[2019-04-30 05:20] LABS: POTASSIUM 2.3 mmol/L (3.5-5.1)
--- NOTE | 2019-04-30 07:03 | NUR ---
Pt incontinent of stool X 2 between start of shift and MN. Received order from Dr. Loza to place fecal management system if loose stools persist. Pt later used bed booth for stool; declined FMS at that time. Stooling has slowed from previous shift. VSS. Remains on 1L O2. Continued redness/excoriation to bottom/denny area; using antifungal barrier ointment after stooling. Will continue to monitor.
[2019-04-30 08:00] VITALS: BP 120/68
--- NOTE | 2019-04-30 12:12 | NUR ---
assumed pt care report received from nurse. pt is aox3 forgetful on 2 ln c. o2 saturation is 94%. pt out of bed to chair with physical therapist. potassium level is 2.3. 2 doses of 40 meq of potassium has been given so far. will give last dose soon. isolation maintained. deal patent. vss. nicotine patch on pt left upper arm. magnesium replacement also given. pt diet advanced to regular, tolorated well. no n/v. red bottom, will apply barrier cream on. will continue to monitor pt
[2019-04-30 12:39] VITALS: BP 108/64
[2019-04-30 16:17] VITALS: BP 117/76
[2019-05-01] VITALS: BP 120/65; BP 125/61
[2019-05-01 04:00] VITALS: BP 111/57
--- NOTE | 2019-05-01 06:03 | NUR ---
VITALS STABLE, AFEBRILE. ABLE TO SLEEP THROUGH THE NIGHT. Q2 TURNS FOR SKIN INTEGRITY. BMX1, LOOSE. CALL LIGHT WITHIN REACH.
[2019-05-01 08:00] VITALS: BP 109/59
--- NOTE | 2019-05-01 11:40 | NUR ---
ASSUMED PT CARE AT O800, AOX3, UP WITH ASSIST. O2 SAT 90'S 2L NC. TRACING SR ON TELE. PT DENIES PAIN. PT ON ISOLATION FOR CDIFF. HAD 1 EPISODE TODAY. WILLETT CATH DRAINING WELL. REDNESS ON BOTTOM NOTED. VSS, AM ASSESSMENT CHARTED, MEDS GIVEN PER MAR. Q2 TURN. HOURLY ROUNDING. WILL CONTINUE TO MONITOR
[2019-05-01 12:00] VITALS: BP 98/50
[2019-05-01 16:00] VITALS: BP 101/53
[2019-05-01 20:00] VITALS: BP 115/65
[2019-05-02] VITALS: BP 117/64
[2019-05-02 04:00] VITALS: BP 99/51
--- NOTE | 2019-05-02 07:00 | NUR ---
PROGRESSING TOWARDS GOALS, AWAKE OFF AND ON DURING NOC, USING CALL LIGHT FOR NEEDS, GENERALIZED WEAKNESS, RA, RESP EVEN AND NONLABORED, DENIES SOA, SR TRACING SUPERVISOR HIDE HOUSE, INCONTINENT LOOSE STOOL X1, ZELALEM CARE WITH BARRIER CREAM APPLIED TO COCCYX GENITAL AREA, C/O NAUSEA X1, ZOFRAN 4MG IVP GIVEN WITH EFFECTIVE RESULTS PER PT VERBALIZED, SERUM POTASSIUM 3.3 THIS AM, POTASSIUM 40MEQ PO GIVEN X1 PER ELECTROLYTE PROTOCOL ORDER, CONSUMED JELLO AND ICE CREAM AT HS, 0.45%NS 75CC/HR VIA INFUSION PUMP TRANSFUSING PER ORDER, TOLERATING PO INTAKE, WILLETT PATENT DD, NO CHANGE IN GENRALIZED RASH TO BACK, RASH REMAINS NONRAISED WITHOUT PURITUS. AWAKE AND CONVERSATIVE REQUESTING BREAKFAST, USING CALL LIGHT FOR NEEDS, CALL LIGHT REMAINS IN REACH.
[2019-05-02 08:21] VITALS: BP 119/69
--- NOTE | 2019-05-02 11:10 | NUR ---
Following for d/c planning needs. Pt may need SNF on d/c from hospital. Spoke with pt and he is agreeable. He has been to [facility] in the past, and is interested in returning. Called and spoke with admissions. Faxed referral. Will await return call re: bed availability and acceptance.
[2019-05-02 12:17] VITALS: BP 102/56
--- NOTE | 2019-05-02 18:01 | NUR ---
VSS, ASSUMED CARE IN THE AM, ASSESSMENT PERFORMED AND CHARTED, FALL PRECAUTIONS IN PLACE AND CALL LIGHT IN REACH, PT IS A&O4 AND IS TRACING SR ON THE MONITOR, ON RA AND IS UP WITH STAND BY ASSIST, PT REMAINS IN ISO PRECAUTIONS FOR C-DIFF, PT DENIES ANY PAIN AND HIS GAOL IS TO SIT UP IN CHAIR AND IMPROVE ACTIVITY, AT THIS TIME PT HAS MET GOALS AND WAS UP IN CHAIR AND HAS WALKED IN ROOM, WILL FOLLOW WITH PLAN OF CARE AND HOURLY ROUNDS.
--- NOTE | 2019-05-02 18:18 | NUR ---
WOUND NURSE: PATIENT WAS SEEN LAST THURSDAY AND ORDERS PROVIDED FOR CARE TO IAD. PATIENT NOT SEEN TODAY BY THIS NURSE A RESULT.
[2019-05-02 21:30] VITALS: BP 121/61
[2019-05-03] VITALS: BP 134/68
[2019-05-03 04:00] VITALS: BP 116/69
[2019-05-03 04:37] LABS: ABSOLUTE BASOPHILS 0.1 thou/uL (0.0-0.2); ABSOLUTE EOSINOPHILS 0.5 thou/uL (0.0-0.7); ABSOLUTE LYMPHOCYTES 2.1 thou/uL (0.8-5.3); ABSOLUTE MONOCYTES 0.8 thou/uL (0.0-1.2); ABSOLUTE NEUTROPHILS 8.1 thou/uL (1.6-8.1); BASOPHILS 0.4 %; EOSINOPHILS 4.1 %; HEMATOCRIT 38.7 % (42.0-52.0); HEMOGLOBIN 12.9 gm/dL (14.0-18.0); LYMPHOCYTES 18.1 %; MCH 32.4 pg (26.0-34.0); MCHC 33.4 g/dL (28.0-37.0); MCV 97.1 fL (80.0-100.0); MPV 7.6 fl. (7.2-11.1); NUCLEATED RBCS 0 /100WBC; PLATELET COUNT* 507 thou/uL (150-400); POLYS 70.4 %; RBC 3.99 mil/uL (4.50-6.00); RDW-CV 14.2 % (10.5-14.5); WBC 11.5 thou/uL (4.0-11.0)
[2019-05-03 04:44] LABS: CALCIUM 8.1 mg/dL (8.5-10.1); CREATININE 1.2 mg/dL (0.6-1.3); MAGNESIUM 2.2 mg/dL (1.8-2.4)
[2019-05-03 04:48] LABS: POTASSIUM 4.4 mmol/L (3.5-5.1)
[2019-05-03 08:00] VITALS: BP 121/67
--- NOTE | 2019-05-03 11:42 | NUR ---
ASSUMED CARE OF PATIENT THIS AM AT 0730. PATIENT IS ALERT AND ORIENTED X 4. HE DENIES PAIN AND DISCOMFORT. PATIENT HAS BEEN INCONTINENT OF STOOL X 2 SO FAR TODAY. HE HAS BEEN ASSISTED UP TO THE CHAIR. TELE HAS SHOWN NSR. DR KRISHNAMURTHY IN TO ROUND AND TRANSFER ORDERS WRITTEN. WILL CONTINUE TO MONITOR.
[2019-05-03] MEDS ORDERED: IPRAT-ALBUT 0.5-3 ML INH (12:15)
[2019-05-03] MEDS ORDERED: CIPRO500 MG PO (12:15)
[2019-05-03] MEDS ORDERED: FIRVANQ50 MG/1 ML PO (12:15)
[2019-05-03] MEDS ORDERED: FLOMAX0.4 MG PO (12:15)
--- NOTE | 2019-05-03 14:03 | NUR ---
Received order from physician to arrange SNF for pt. Spoke with pt again this morning and he is agreeable with SNF. He wants to be close to his home in [place]. Called [place], [facility], [facility], [facility] and [place], and faxed records to all facilities. Received call back from [facility]. They decline due to history of marijuana use. Awaiting return call re: bed availability and acceptance.
[2019-05-03 14:51] VITALS: BP 121/67
--- NOTE | 2019-05-03 14:59 | NUR ---
I have reviewed the documentation by ZANDER SCHNEIDER from TODAY to 05/03/19 and I concur with it. WILL CANTRELL
== END 2019-05-03 18:10 | DRG 871 ==
LOC: M.ERS 14:07 → M.TBA-ER 16:20 → M.2W 16:20
PROVIDERS: Physician Assistant; ADMIT Family Medicine
DX: A41.9 Sepsis, unspecified organism (principal); E43 Unspecified severe protein-calorie malnutrition; N17.9 Acute kidney failure, unspecified; N13.30 Unspecified hydronephrosis; A04.72 Enterocolitis due to Clostridium difficile, not specified as recurrent; N39.0 Urinary tract infection, site not specified; K52.9 Noninfective gastroenteritis and colitis, unspecified; R33.9 Retention of urine, unspecified; I12.9 Hypertensive chronic kidney disease with stage 1 through stage 4 chronic kidney disease, or unspecified chronic kidney disease; N18.2 Chronic kidney disease, stage 2 (mild); F17.200 Nicotine dependence, unspecified, uncomplicated; E87.6 Hypokalemia; E83.42 Hypomagnesemia; Z90.49 Acquired absence of other specified parts of digestive tract; Z88.6 Allergy status to analgesic agent; Z68.24 Body mass index [BMI] 24.0-24.9, adult

== ENCOUNTER → 2019-08-23 | Outpatient (CLI) | payer MEDICARE ==
[~2019-08-23] MED LIST changes: +CIPRO500 MG PO; +FIRVANQ50 MG/1 ML PO; +FLOMAX0.4 MG PO; +IPRAT-ALBUT 0.5-3 ML INH
--- NOTE | 2019-08-25 09:56 | PF ---
[address] [address] PULMONARY FUNCTION REPORT Name: JUAN GUARDADO Room: [facility].#: [id number] Admission: 08/23/19 Attend Phys: [place] Snachez DO Discharge: Date of : 43 Report #: [id number] THIS REPORT FOR: //name// CC: Hudson Sanchez DATE OF SERVICE: 08/24/2019 REQUESTING PHYSICIAN: Dr. Hudson Sanchez. Spirometry reveals a severe decrease in the FEV1 to 1.17, which is 50% of predicted. It did improve by 17% after inhaled bronchodilator to 1.36. FVC was 2.84, which was 86% of predicted. The FEV1/FVC ratio is 41%. Mid flows were severely decreased. There was a significant change in the mid flows after inhaled bronchodilator. Lung volumes by plethysmography reveal a TLC to be upper limits of normal. Residual volume was markedly increased. Diffusion capacity was mildly diminished. IMPRESSION: These studies are consistent with a severe obstructive process. There is improvement after inhaled bronchodilator. There is evidence of air trapping and a mild decrease in diffusion capacity. <ELECTRONICALLY SIGNED> By: Sangeteha Ferrell MD 08/25/19 0956 1105 1148Kait Joseph MD /nt
== END ==
LOC: M.PUL 09:48
DX: J44.9 Chronic obstructive pulmonary disease, unspecified (principal); M43.8X4 Other specified deforming dorsopathies, thoracic region; Z72.0 Tobacco use